=== PATIENT | female | born 1965 | race Caucasian/White ===

== ENCOUNTER 2025-04-12 08:30 | Outpatient (CLI) | payer OTHER | END 2025-04-12 08:31 | disposition home or self-care (01) | LOC: CSHULT 08:30 | PROVIDERS: ATTEND Student in an Organized Health Care Education/Training Program | DX: R10.11 Right upper quadrant pain (principal); R10.A1 Flank pain, right side; K76.0 Fatty (change of) liver, not elsewhere classified; K76.89 Other specified diseases of liver | CPT/HCPCS: 76700 ==